=== PATIENT | female | born 1970 | race Caucasian/White ===

== ENCOUNTER 2020-03-06 14:47 | Emergency (ER) | payer OTHER, SELFPAY ==
[~2020-03-06] VITALS: Ht 167.6 cm; Wt 81.6 kg
[2020-03-06 14:49] VITALS: Ht 167.6 cm; Wt 81.6 kg
[2020-03-06 16:21] LABS: PLATELET COUNT 192 x10^3mcL (130-400); RED CELL DISTRIBUTION WIDTH 12.8 % (11.5-14.5)
[2020-03-06 16:22] LABS: BASOPHIL % 0 % (0-2); CALCIUM 9.5 mg/dL (8.5-10.1); CARBON DIOXIDE 29.6 mmol/L (21-32); CREATININE SERUM 1.1 mg/dL (0.6-1.0); POTASSIUM SERUM 3.6 mmol/L (3.5-5.1)
[2020-03-06 16:26] LABS: ALBUMIN 3.7 g/dL (3.4-5.0); BILIRUBIN TOTAL 1.81 mg/dL (0.20-1.00); TOTAL PROTEIN, SERUM 7.7 g/dL (6.4-8.2)
[2020-03-06 20:50] VITALS: BP 112/70
== END 2020-03-06 20:50 | disposition home or self-care (01) ==
LOC: ED 14:47
PROVIDERS: Emergency Medicine
DX: R50.9 Fever, unspecified (principal); Z20.828 Contact with and (suspected) exposure to other viral communicable diseases; G43.909 Migraine, unspecified, not intractable, without status migrainosus; Z90.89 Acquired absence of other organs
CPT/HCPCS: 85378; J2405; J7030; Q0092; Q9967; U0003-CS

== ENCOUNTER 2020-03-09 03:21 | Inpatient (IN) | payer OTHER, SELFPAY ==
[~2020-03-09] VITALS: Ht 167.6 cm; Wt 81.6 kg
--- NOTE | 2020-03-09 04:03 | NUR ---
PT BIB BOYFRIEND FOR C/C OF N/V D/T COVID SYMPTOMS. PT REPORTS N/V X4 DAYS. PT REPORTS 8 EPISODES OF VOMITING TODAY AND IS UNABLE TO HOLD FLUIDS DOWN. PT REPORT RIGHT FLANK PAIN AND BURNING UPON URINATIONS. PT ALSO REPORTS EARACHE, BILATERALLY.PT IS A&OX 4 WITH E/U BREATHS, NO ACD NOTED AT THIS TIME.
[2020-03-09 04:11] LABS: RED CELL DISTRIBUTION WIDTH 13.5 % (11.5-14.5)
[2020-03-09 04:12] LABS: BASOPHIL % 0 % (0-2); PLATELET COUNT 115 x10^3mcL (130-400)
[2020-03-09 04:27] LABS: CALCIUM 8.8 mg/dL (8.5-10.1); CARBON DIOXIDE 26.4 mmol/L (21-32); CREATININE SERUM 1.6 mg/dL (0.6-1.0); POTASSIUM SERUM 3.4 mmol/L (3.5-5.1)
[2020-03-09 04:32] LABS: ALBUMIN 2.6 g/dL (3.4-5.0); BILIRUBIN TOTAL 0.96 mg/dL (0.20-1.00); TOTAL PROTEIN, SERUM 7.1 g/dL (6.4-8.2)
--- NOTE | 2020-03-09 05:06 | NUR ---
TWO MISSED IV ATTEMPTS, REQUESTING ASSISTANCE FROM ANOTHER NURSE.
--- NOTE | 2020-03-09 06:17 | NUR ---
DR. MORFIN AT BEDSIDE.
--- NOTE | 2020-03-09 06:22 | NUR ---
PT MEDICATED PER MD ORDER, SEE EMAR. PT TOLERATED IV MED WELL. PT IS A&OX4 WITH E/U BREATHS. PT SAT 98% ON RA.
--- NOTE | 2020-03-09 06:40 | NUR ---
PT NOTED WITH RAPID SHALLOW BREATHS. PT ABLE TO SPEAK IN FULL AND CLEAR SENTENCES. CURRENT 02 SAT BETWEEN 95% AND 95% ON RA.
--- NOTE | 2020-03-09 07:10 | NUR ---
PT NOTED 02 SAT BETWEEN 93-94%, PLACED ON 2L O2 VIA NC
--- NOTE | 2020-03-09 07:20 | NUR ---
CALLED PHARMACY FOR HEPARIN DRIP CLARIFICATION. PER PHARMACY, THEY WILL ORDER PT/PTT STAT AND GIVE INSTRUCTIONS ONCE THE RESULTS ARE BACK IN.
--- NOTE | 2020-03-09 07:28 | NUR ---
REPORT GIVEN TO PATY PARK TO ASSUME CARE OF PT. PT GOING TO TELE 207B.
--- NOTE | 2020-03-09 07:29 | NUR ---
CONTACTED RT DEPT FOR ALBUTEROL ADMINISTRATION
--- NOTE | 2020-03-09 07:33 | NUR ---
PER PHARMACY, NOT TO GIVE HEPARIN 4000U IVP UNTIL PT/PTT RESULTS ARE BACK IN.
--- NOTE | 2020-03-09 07:37 | NUR ---
PER PHARMACY, HOLD HEPARIN BOLUS DUE TO NO PTT RESULTS YET.
--- NOTE | 2020-03-09 07:55 | NUR ---
PER RT, NOT ABLE TO PERFORM THE ORDER DUE TO PT BEING A R/O. WILL NOTIFY ADMITTING RN TO CHANGE ORDER TO "RTP"
--- NOTE | 2020-03-09 08:30 | NUR ---
REEIVED REPORT FROM STAFF IN THE ER. PATIENT HAS BEEN AMBULATORY AND AT [facility] FEVER FREE. AWAIT ARRIVA.
[2020-03-09 08:40] VITALS: BP 117/79
--- NOTE | 2020-03-09 08:48 | NUR ---
RECIEVED PATIENT FROM ER AN DIS ALERT AND ORIENTED TIMES FOUR. 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 SHE WAS HERE ON THE AND THE COVID READ NEGATIVE AT THAT TIME. APTCHARITO NOW HAS BEEN SWABBED IN THE ER AND HAD RECEIVE ROCEPHIN, DECADRON, TYLNOEL AND TORADOL AND HAS BEEN GIVEN 02 AND ALBUTERAL BREATHING TREATMENT. SHE HAS AT TIME OF ARRIVAL ON ZITHROMAX AND RECEIVED HEPARIN ALSO IN THE ER. PATIENTHAS AT THIS TIME NO COMPLAINTS OF PAIN AND HAS NO FEVER. PLACED ON LESLIE 2 LITERS AND FOR NOW SHE WILL BE HEPLOCKED POST THE ZITHROMAX. PATIENT HAS NOTED ELEVATED TROPON AND D DIMMER IN THE ER. SHE IS TOTAL AMBULATORY WITHOUT DIZZINESS AND NO VOMITIGN SINCE ARRIVAL TO THE FLOOR. SHE DENIES ANY DIARRHEA AND HAD LAST BM ON MONDAY.
[2020-03-09 10:16] VITALS: BP 122/59
--- NOTE | 2020-03-09 11:14 | NUR ---
PATIENT SO FAR TOLERATED DIET AND HAS BEEN SLEEPING. SENT MRSA OF THE NARES INDICATED TO THE LAB.
[2020-03-09 12:05] VITALS: BP 106/67
[2020-03-09 16:46] VITALS: BP 133/83
--- NOTE | 2020-03-09 17:24 | NUR ---
TYLENOL EFFECTIVE FOR HEADACHE AND SHE HAS BEEN AMBULATING IN THE ROOM. CONTIUED ON HEPARIN ORDERED AND PATIENT LEIDA NO PAIN TO THE IV SITE AT THIS TIME.
--- NOTE | 2020-03-09 18:30 | NUR ---
CALLED THE PRIMARY TO GIVE REPORT ABOUT THE E COLI IN THE BLOOD. AWAITING CALL BACK AT THIS TIME
--- NOTE | 2020-03-09 19:51 | NUR ---
RECEIVED PATIENT IN BED AWAKE, ALERT AND ORIENTED X4 WITH NO SIGN OF RESPIRATORY DISTRESS. BREATHING EASY AND NONLABOR ON O2 AT 2L VIA NC SATTING AT 93%. TELE#1 NSR ON MONITOR, DENIES CHESTPAIN. [place] [address] UNITS PER HOUR (10ML/HR). NEXT PTT AT 2100 TONIGHT. KEPT ON ISOLATION PRECAUTION R/O COVID. WILL CONTINUE TO MONITOR. CALL LIGHT WITHIN REACH.
[2020-03-09 21:06] VITALS: BP 125/86
--- NOTE | 2020-03-09 21:54 | NUR ---
PTT-35.9 REBOLUS 3000 UNITS AND INFUSION INCREASED BY 200 UNITS/HR (2ML/HR) PER HEPARIN PROTOCOL.
--- NOTE | 2020-03-09 22:04 | NUR ---
HEPARIN DRIP INFUSING NOW [id number] UMITS/HR (12ML/HR),NEXT PTT ORDERED AT 0400 03/10/20. WILL CONTINUE TO MONITOR.
--- NOTE | 2020-03-10 00:16 | NUR ---
APPEAR TO BE SLEEPING WITH EYES CLOSED WITH NO SIGN OF DISCOMFORT.
[2020-03-10 05:04] LABS: PLATELET COUNT 162 x10^3mcL (130-400); RED CELL DISTRIBUTION WIDTH 13.7 % (11.5-14.5)
--- NOTE | 2020-03-10 05:12 | NUR ---
NO SIGNIFICANT CHANGES IN CONDITION NOTED THROUGHOUT THE SHIFT. ALL NEEDS ATTENDED. KEPT ON ISOLATION PRECAUTION R/O COVID.
[2020-03-10 05:20] LABS: BASOPHIL % 0 % (0-2)
[2020-03-10 05:21] LABS: BILIRUBIN TOTAL 0.39 mg/dL (0.20-1.00); CALCIUM 9.2 mg/dL (8.5-10.1); CARBON DIOXIDE 28.1 mmol/L (21-32); CREATININE SERUM 1.2 mg/dL (0.6-1.0); POTASSIUM SERUM 4.2 mmol/L (3.5-5.1); TOTAL PROTEIN, SERUM 7.6 g/dL (6.4-8.2)
[2020-03-10 05:26] LABS: ALBUMIN 2.5 g/dL (3.4-5.0)
[2020-03-10 05:48] VITALS: BP 131/78
--- NOTE | 2020-03-10 06:03 | NUR ---
PTT-33.4 REBOLUS 3000 UNITS AND INCREASED INFUSION BY 200 UNITS/HR (2ML/HR), [place] [address] UNITS/HR (14ML/HR) PER HEPARIN PROTOCOL. WILL ENDORSE CONTINOUS CARE TO AM SHIFT.
--- NOTE | 2020-03-10 08:30 | NUR ---
RECEIVED PT. IN BED A/A/O X3. NO SOB, NO N/V NOTED. PT. DENIES ANY PAIN AT THIS TIME. PT. IS ON ROOM AIR. IV SITE NOTED TO R AC. PT. IS ON DROPLET ISOLATION FOR RULING OUT COVID-19. BED IN LOW POS., CALL LIGHT WITHIN REACH. SIDE RAILS UP X3.
[2020-03-10 11:00] VITALS: BP 131/78
--- NOTE | 2020-03-10 11:30 | NUR ---
IV SITE #2 STARTED AT L FA WITH GAUGE #24.
[2020-03-10 13:05] VITALS: Ht 167.6 cm; Wt 81.6 kg
--- NOTE | 2020-03-10 13:12 | NUR ---
PT. IS BEING SEEN BY DR. RICHTER AT THIS TIME.
--- NOTE | 2020-03-10 13:18 | NUR ---
HEPARIN DRIP DISCONTINUED PER DR. RICHTER.
[2020-03-10 15:26] VITALS: BP 152/91
--- NOTE | 2020-03-10 16:17 | NUR ---
PT INITIALLY C/O R FLANK PAIN 01/23; WAS GOING TO BE GIVEN NORCO 5/325 1 TAB PO, BUT UPON SCANNING ID BAND, PT STATED THAT SHE WILL BE UNABLE TO TAKE THE TABLET 2/2 NAUSEA; PT ASKED FOR ANTIEMETIC INSTEAD; PT GIVEN ZOFRAN 4 MG IVP; DARKENED ROOM, AND ASKED PT TO TRY RELAX. WILL ENDORSE TO VIVIAN GONZÁLES.
[2020-03-10 16:54] LABS: microscopic required? YES; urine erythrocyte 2+ (NEGATIVE)
[2020-03-10 17:41] VITALS: BP 147/86
--- NOTE | 2020-03-10 19:00 | NUR ---
REMAINS IN STABLE CONDITION AT THIS TIME. WILL CONTINUE TO MONITOR.
--- NOTE | 2020-03-10 19:45 | NUR ---
RECEIVED PATIENT IN BED AWAKE, ALERT AND ORIENTED WITH NO SIGN OF ACUTE RESPIRATORY DISTRESS. BREATHING EASY AND NONLABOR SATTING AT 98% RA. TELE#1 NSR ON MONITOR, DENIES CHEST PAIN. PATIENT MEDICATED EARLIER FOR FLANK PAIN. IV HEPLOCKED TO RAC AND LFA. WILL CONTINUE TO MONITOR. CALL LIGHT WITHIN REACH.
[2020-03-10 22:03] VITALS: BP 128/74
--- NOTE | 2020-03-10 22:15 | NUR ---
PT RECEIVED LYING PRONE. A/OX4. RA, DENIES SOB. LBM 03/09. PT REPORTS R FLANK PAIN. NORCO 5/325MG PO ADMINISTERED ORDERED. RITESH RAC D/C AT PT REQUESTS. RITESH Mosley WRIST PATENT, NO COMPICATIONS TO SITE. PT AMBUALTORY WITH STEADY GAIT. PT PROVIDED WITH ADDITIONAL PILLOW. BED IN LOWEST POSITION, SIDE RAILS X 2, CALL LIGHT WITHIN REACH.
--- NOTE | 2020-03-11 01:31 | NUR ---
PT USED CALL LIGHT TO REPORT PAIN. PT C/O PAIN TO R FLANK, 02/23. NORCO 5/325MG GIVEN ORDERED. PT DENIES N/V AT THIS TIME. ALL OTHER NEEDS MET. PT SITTING UP IN BED, LOWEST POSITION, SIDE RAILS X 2. CALL LIGHT WITHIN REACH
[2020-03-11 05:14] VITALS: BP 123/72
--- NOTE | 2020-03-11 05:37 | NUR ---
A/OX4, CALM AND COOPERATIVE THROUGHOUT SHIFT. RESPIRATIONS EVEN, UNLABORED, NO SOB NOTED OR REPORTED. NSR, DENIES CHEST PAIN. NO BM DURING SHIFT. NAUSEA X 2, ZOFRAN 4MG IVP ADMISNITERED ORDERED, EFFECTIVE. PT REPORTS CONSTIPATION, COLACE GIVEN ORDERED. ADEQUATE UOP. C/O RIGHT FLANK PAIN X 3, NORCO 5/325MG GIVEN ORDERED (SEE MAR), EFFECTIVE. SKIN INTACT. AMBUALTORY WITH STEADY GAIT, NO FALLS OR INJURIES DURING SHIFT. IV LEFT WRIST 24G, PATENT, NO COMPLICATIONS TO SITE. BED IN LOWEST POSITION, SIDE RAILS X 2, CALL LIGHT WITHIN REACH. ALL NEEDS MET AT THIS TIME.
[2020-03-11 06:34] LABS: BASOPHIL % 0.2 % (0-2); PLATELET COUNT 170 x10^3mcL (130-400); RED CELL DISTRIBUTION WIDTH 13.5 % (11.5-14.5)
[2020-03-11 07:24] LABS: BILIRUBIN TOTAL 0.31 mg/dL (0.20-1.00); CALCIUM 8.5 mg/dL (8.5-10.1); CARBON DIOXIDE 17.2 mmol/L (21-32); CREATININE SERUM 1.1 mg/dL (0.6-1.0); POTASSIUM SERUM 3.1 mmol/L (3.5-5.1)
[2020-03-11 07:25] LABS: ALBUMIN 2.1 g/dL (3.4-5.0); TOTAL PROTEIN, SERUM 6.1 g/dL (6.4-8.2)
--- NOTE | 2020-03-11 07:30 | NUR ---
RECEIVED PATIENT IN BED, AROUSED EASILY TO NAME. HL LEFT WRIST FLUSHED WELL, NO S/S OF ANY INFILTRATIION. RESP EVEN AND UNLABORED, LUNGS CLEAR ON ROOM AIR. ABD SOFT BOWEL SOUNDS ACTIVE. PER PATIENT SHE HAS BEEN CONSTIPATED, LAST BM WAS ON THE . CONTINUES TO HAVE RT FLANK PAIN OFF AND ON, BUT DENIES ANY AT THIS TIME. ALSO HAVING NAUSEA BUT OFF AND ON BUT DENIES ANY AT THIS TIME. AMBULATES AD FRANSISCA. TELE 1 NSR.
[2020-03-11 09:19] VITALS: BP 135/81
--- NOTE | 2020-03-11 09:19 | NUR ---
PATIENT'S PLAN OF CARE WAS DISCUSSED AND REVIEWED WITH JOURNAL ENTRY AUDIT CLERK:OZZIE YATES. I HAVE REVIEWED THE DATA COLLECTION BY JOURNAL ENTRY AUDIT CLERK (NAME):ALESIA YATES. ENTERED ON (DATE/TIME):03/11/20. I CONCUR WITH THE DATA AND ANY EXCEPTIONS OR COMMENTS ARE LISTED BELOW:
[2020-03-11 12:58] VITALS: BP 151/88
[2020-03-11] MEDS ORDERED: COL250 PO (13:34)
[2020-03-11] MEDS ORDERED: LEVAQUIN500 M1 PO (13:35)
[2020-03-11] MEDS ORDERED: ZOF4 SL (13:36)
[2020-03-11] MEDS ORDERED: NORCO1 TA2 PO (13:38)
--- NOTE | 2020-03-11 14:43 | NUR ---
Initial Nutrition Assessment: 207B YOUNG, VIKKI 50F HR Nursing trigger: N/V/D > 3days, Poor PO > 3 days, unable to ingest food for age Dx: Early respiratory failure, probable COVID 19 PMHx: none noted PSHx: none noted Labs: (03/11) 11.3/33L, K 3.1L, Cr 1.1H, BG 108H, POC BG 134H, albumin 2.1H Meds: Zofran, Colace, Lovenox, Rocephin, [place], Tylenol Diet: Regular diet PO intake since admission: (03/11) B: 0% noted *no other entries Ht: 167.64cm/66in Wt: 81.647kg/179.6lbs BMI: 29.1 Bed scale: not accessible IBW: 59.09kg/130lbs %IBW: 138.2% ABW: 65kg UBW: unknown Age: 50 Food Allergies: unknown Edema: No edema noted Last BM: 03/09 Skin: skin intact Tarun: 21 Per H and P (03/09), pt is a 50-year-old female with no significant PMH 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 she developed fever and chills 2 days ago and was seen in ER. Advised to take Tylenol and ibuprofen. She was tested for COVID 19 but results not yet available. She went home and developed nausea and vomiting multiple times. She returned to ER and was admitted Pt was admitted with dx: Acute febrile illness, nausea and vomiting, Hypokalemia, MAI RD Note (03/11) Per bed huddle meeting on 03/11, pt was tested COVID positive x 2. Pt was in isolation d/t COVID positive, and pt did not respond when RN contact the pt via bedside phone. Assessment was done relied on medical records and pt's RN. Per pt's RN, pt feel nauseated, and pt also was constipated. Pt had poor appetite d/t nausea, but it seemed to improve today according to RN. RD planned to implement ONS to aid PO intake, and RN mentioned that pt might be too nauseated to take ONS, but it would be beneficial once nausea resolved. Problem with: N/V/D/C: nauseated, constipation per RN Problems with: Chewing: Swallowing: pt did not eat any food per RN Current appetite: Poor Per RN Recent wt change: unknown %wt change: unknown Height: unknown Vitamin/Supplement use: unknown Special diet at home: unknown Physical activity: unknown Nutrition education given (specify specific nutrition education and handout given): n/a Food-drug interactions? Education given? n/a Estimated Nutritional Needs Based on adjusted body weight (65kg) Energy: 9567-1364 kcal/day (30-35 kcal/kg for viral infection) Protein: 65-78 g/day (1-1.2 g/kg for viral infection and MAI) Fluid: 1419-3210 mL/day (1 mL/kcal) Nutrition Diagnosis: 1. Inadequate energy and protein intake r/t nausea induced poor PO intake a/e/b RN reported feel nauseous and did not want to eat. Intervention 1. Recommend continue regular diet as tolerate 2. Recommend ensure QD and monitor pt's tolerance for ONS. 3. RD will implement more ONS if pt is able to tolerate ONS and PO intake meets < 75% estimated needs upon follow-up. Monitor/Evaluate Goal: PO intake at least 75% of estimated needs Monitor: PO intake, Labs, GI function, ONS tolerance F/U in 2-3 days as high risk
[2020-03-11 14:46] VITALS: BP 151/88
--- NOTE | 2020-03-11 15:20 | NUR ---
PATIENT APPEARS TO BE RESTING WELL. AWAITING DR RICHTER TO COMPLETE HER DISCHARGE PAPER WORK. CONDITION APPEARS STABLE.
--- NOTE | 2020-03-11 16:13 | NUR ---
PATIENT READY FOR D/C HOME HL AND TELE DC'D. PRESCRIPTIONS AND DISCHARGE INSTRUCTIONS GIVEN. EDUCATION PROVIDED. PERSONAL BELONGINGS LIST SIGNED. CONDITION APPEARS STABLE.
== END 2020-03-11 16:20 | disposition home or self-care (01) | DRG 690 ==
LOC: ED 03:21 → DU 05:52
PROVIDERS: Emergency Medicine; Internal Medicine; ADMIT Internal Medicine; ATTEND Internal Medicine
DX: N39.0 Urinary tract infection, site not specified (principal); N17.9 Acute kidney failure, unspecified; L03.116 Cellulitis of left lower limb; L03.115 Cellulitis of right lower limb; R78.81 Bacteremia; E87.6 Hypokalemia; G43.909 Migraine, unspecified, not intractable, without status migrainosus; E86.0 Dehydration; B96.20 Unspecified Escherichia coli [E. coli] as the cause of diseases classified elsewhere; Z20.828 Contact with and (suspected) exposure to other viral communicable diseases
CPT/HCPCS: 36600; 82962; 83880; 85378; G0378; J0456; J0696; J1100; J1644; J1650; J1885; J2405; J3535; J7040; Q0092; U0003-CS